=== PATIENT | female | born 1975 | race Asian ===

== ENCOUNTER → 2017-05-01 | Outpatient (CLI) | payer OTHER ==
[2017-05-01 11:04] LABS: ADD SCAN DIFF NO
[2017-05-01 11:07] LABS: BASOPHIL # 0.1 10^3/ul (0.0-0.1); BASOPHILS % 0.9 % (0.0-2.0); EOSINOPHILS # 0.2 10^3/ul (0.0-0.5); EOSINOPHILS % 3.8 % (0.0-7.0); HEMATOCRIT 40.5 % (37.0-47.0); HEMOGLOBIN 13.3 g/dl (12.0-16.0); LYMPHOCYTES # 2.2 10^3/ul (0.8-2.9); LYMPHOCYTES % 38.5 % (15.0-51.0); MEAN CORPUSCULAR HEMOGLOBIN 30.1 pg (29.0-33.0); MEAN CORPUSCULAR HGB CONC 32.8 g/dl (32.0-37.0); MEAN CORPUSCULAR VOLUME 91.6 fl (82.0-101.0); MEAN PLATELET VOLUME 10.1 fl (7.4-10.4); MONOCYTE # 0.3 10^3/ul (0.3-0.9); MONOCYTES % 5.6 % (0.0-11.0); NEUTROPHIL # 2.9 10^3/ul (1.6-7.5); NEUTROPHILS % 50.9 % (39.0-77.0); PLATELET COUNT 239 10^3/UL (140-415); RED BLOOD COUNT 4.42 10^6/ul (4.20-5.40); RED CELL DISTRIBUTION WIDTH 11.4 % (11.5-14.5); WHITE BLOOD COUNT 5.7 10^3/ul (4.8-10.8)
[2017-05-01 11:44] LABS: ALBUMIN 5.1 g/dl (3.3-4.9); ALBUMIN/GLOBULIN RATIO 1.3; BILIRUBIN,INDIRECT 0.5 mg/dl (0-1.1); BILIRUBIN,TOTAL 0.5 mg/dl (0.2-1.3); CALCIUM 9.8 mg/dl (8.4-10.2); CREATININE 0.6 mg/dl (0.44-1.00); POTASSIUM 4.1 mmol/L (3.5-5.1)
[2017-05-01 11:59] LABS: FREE T3 4.25 pg/ml (2.77-5.27)
[2017-05-01 12:13] LABS: THYROID STIMULATING HORMONE 1.03 MIU/L (0.465-4.680)
--- NOTE | 2017-05-01 13:28 | RADRPT ---
PROCEDURE: XR Chest. CLINICAL INDICATION: PER-OP THYROID CA TECHNIQUE: PA and lateral views of the chest were obtained. COMPARISON: None. FINDINGS: The heart and mediastinum are within normal limits. The lungs are hyperexpanded with flattening of the diaphragm. There are no focal infiltrates. There is no significant pleural effusion or pneumothorax. Osseous and soft tissue structures are unremarkable. IMPRESSION: Hyperexpanded lungs without focal infiltrates or effusions. RPTAT: EE Physician Valeria Date Time Electronically viewed and signed by Physician Valeria on 05/01/2017 13:28 /
--- NOTE | 2017-05-01 17:55 | RADRPT ---
Vent Rate: 68 bpm RR Interval: [address] Interval: 156 msec QRS Duration: 78 msec QT Interval: 412 msec QTC Interval: 438 msec P-R-T Wheel[place]: 59 - 51 - 45 degrees Normal sinus rhythm Normal ECG Electronically Signed By: Manuel Rodríguez [id number]
== END | disposition home or self-care (01) ==
LOC: LAB 10:29
PROVIDERS: ATTEND Internal Medicine Geriatric Medicine
DX: C73 Malignant neoplasm of thyroid gland (principal)
CPT/HCPCS: 71020; 80053; 84439; 84443; 84481; 85025; 93005